=== PATIENT | female | born 1935 | race Caucasian/White ===

== ENCOUNTER 2018-02-28 16:47 | Inpatient (IN) | payer MEDICARE, OTHER ==
--- NOTE | 2018-02-28 17:09 | EDM.PDOC ---
ED HPI GENERAL MEDICAL PROBLEM - General Chief Complaint: Respiratory Problem Stated Complaint: POSSIBLE PNEUMONIA Time Seen by Provider: 02/28/18 16:50 Source of Information: Reports: Patient, EMS, Correction Records History Limitations: Reports: No Limitations - History of Present Illness INITIAL COMMENTS - FREE TEXT/NARRATIVE: Alondra comes into [facility] ED by EMS from [facility] with reported chest congestion, productive cough, and dyspnea over the past 2 weeks. Staff believes she has lost 5-6#s. She was seen in [facility] today who detected a L lower lobe pneumonia and hypoxia in spite of DuoNeb. She has a known hx of pulmonary fibrosis, wears 02 at HS, and has been managed for pneumonia in the past. She is a poor historian. - Related Data Allergies Allergy/AdvReac Type Severity Reaction Status Date / Time No Known Allergies Allergy Verified 06/21/15 18:10 Home Meds: Home Meds Cetirizine [ZyrTEC] 10 mg PO DAILY 06/21/15 [History] Diclofenac Sodium [Voltaren 1% Gel] 1 applic TOP DAILY 06/21/15 [History] Donepezil HCl [Aricept] 23 mg PO DAILY 06/21/15 [History] Omeprazole 20 mg PO DAILY 06/21/15 [History] Oxybutynin [Oxybutynin ER] 10 mg PO DAILY 06/21/15 [History] amLODIPine [Norvasc] 5 mg PO DAILY 06/21/15 [History] Past Medical History HEENT History: Reports: Allergic Rhinitis, Hard of Hearing Cardiovascular History: Reports: High Cholesterol, Hypertension Respiratory History: Reports: COPD, Pneumonia, Recurrent, Pulmonary Fibrosis Gastrointestinal History: Reports: GERD Psychiatric History: Reports: Alzheimers Disease ED ROS GENERAL - Review of Systems Review Of Systems: Unable To Obtain ED EXAM, GENERAL - Physical Exam Exam: See Below Exam Limited By: Other (poor historian) General Appearance: Alert, WD/WN, No Apparent Distress, Thin Eye Exam: Bilateral Eye: EOMI, Normal Inspection, PERRL Ears: Hearing Loss Nose: Normal Inspection Throat/Mouth: Normal Inspection, Normal Lips, No Airway Compromise Head: Normocephalic Neck: Normal Inspection, Supple, Non-Tender Respiratory/Chest: Chest Non-Tender, Decreased Breath Sounds, Rales, Rhonchi, Prolonged Expiration Cardiovascular: Regular Rate, Rhythm, No Murmur GI/Abdominal: Normal Bowel Sounds, Soft, Non-Tender, No Organomegaly, No Distention, No Mass (Female) Exam: Deferred Rectal (Female) Exam: Deferred Back Exam: Normal Inspection Extremities: Normal Inspection Neurological: Alert, No Motor/Sensory Deficits, Disoriented, Slow to Respond, Memory Loss Remote Events, Memory Loss Recent Events Psychiatric: Flat Affect Skin Exam: Warm, Dry, Intact, Normal Color Lymphatic: No Adenopathy Course - Vital Signs Text/Narrative:: I reviewed the chest x ray from the Clinic, and compared with studies from 2016 , and there appears to be infiltrates and progression of pulmonary fibrosis in the L lower and lingular lobes of the lungs. She is afebrile, and is chronically ill. She will be admitted to Observation for initiation of therapies , hydration, and steroids. Hospitalist will follow up in the am. Departure - Departure Time of Disposition: 17:42 Disposition: Refer to Observation Condition: Fair Clinical Impression: Pulmonary fibrosis Community acquired pneumonia Qualifiers: Laterality: left Lung location: lower lobe of lung Qualified Code(s): J18.1 - Lobar pneumonia, unspecified organism - Discharge Information Referrals: Awilda Martini DRONE PILOT [Primary Care Provider] - Forms: ED Department Discharge - Problem List & Annotations (1) Community acquired pneumonia SNOMED Code(s): 613181603 Code(s): J18.9 - PNEUMONIA, UNSPECIFIED ORGANISM Status: Acute Current Visit: Yes Annotation/Comment:: Admit to Observation. Qualifiers: Laterality: left Lung location: lower lobe of lung Qualified Code(s): J18.1 - Lobar pneumonia, unspecified organism (2) Pulmonary fibrosis SNOMED Code(s): 58734757 Code(s): J84.10 - PULMONARY FIBROSIS, UNSPECIFIED Status: Acute Current Visit: Yes Annotation/Comment:: Admit to Observation, continue 02, and start Prednisone - Problem List Review Problem List Initiated/Reviewed/Updated: Yes - Assessment/Plan Plan: Follow up per Hospitalist.
[2018-02-28] MEDS ORDERED: predniSONE 20 MG Tab PO ONE (17:28)
[2018-02-28] MEDS ORDERED: Dextrose 5%-Lactated Ringers 1,000 ML IV SCH ×2 (17:30→21:15)
[2018-02-28] MEDS ORDERED: Azithromycin 500 MG in Sodium Chloride 0.9% 250 ML IV SCH (17:45)
[2018-02-28] MEDS ORDERED: cefTRIAXone 1,000 MG VIAL IVPUSH SCH (17:45)
[2018-02-28] MEDS: Sodium Chloride 0.9% 10 ML Syringe FLUSH PRN ×2 (18:34→20:14)
[2018-02-28] MEDS: Albuterol/Ipratropium 3.0-0.5 MG/3 ML Neb Soln NEB SCH ×2 (18:41→21:26)
[2018-03-01] MEDS: Albuterol/Ipratropium 3.0-0.5 MG/3 ML Neb Soln NEB SCH ×5 (01:26→20:08)
--- NOTE | 2018-03-01 08:17 | PCM.HP ---
H&P History of Present Illness - General Date of Service: 03/01/18 Admit Problem/Dx: Admission Diagnosis/Problem Admission Diagnosis/Problem Community acquired pneumonia Source of Information: Old Records History Limitations: Reports: Other (Dementia) - History of Present Illness Initial Comments - Free Text/Narative: This is an 82-year-old female patient from [facility] with severe dementia was seen essential clinic yesterday. She said 2 week history of dyspnea, cough and was diagnosed with a left lower lobe pneumonia and sent over to the ER for admission. She has a history of pulmonary fibrosis. Patient is alert and talking. Does not answer questions so no further history that I'm able to obtain. Only by old records. denies when asked Pain Score (Numeric/FACES): 0 - Related Data Allergies/Adverse Reactions: Allergies Allergy/AdvReac Type Severity Reaction Status Date / Time codeine Allergy Cannot Verified 02/28/18 19:36 Remember levofloxacin [From Levaquin] Allergy Cannot Verified 02/28/18 19:36 Remember NSAIDS (Non-Steroidal Allergy Cannot Verified 02/28/18 19:36 Anti-Inflamma Remember ofloxacin [From Floxin] Allergy Cannot Verified 02/28/18 19:36 Remember oxycodone Allergy Cannot Verified 02/28/18 19:36 Remember propoxyphene Allergy Cannot Verified 02/28/18 19:36 Remember salicylates Allergy Cannot Verified 02/28/18 19:36 Remember sertraline Allergy Cannot Verified 02/28/18 19:36 Remember Sulfa (Sulfonamide Allergy Cannot Verified 02/28/18 19:36 Antibiotics) Remember Home Medications: Home Meds Diclofenac Sodium [Voltaren 1% Gel] 1 applic TOP QID PRN 06/21/15 [History] Donepezil HCl [Aricept] 23 mg PO DAILY 06/21/15 [History] Omeprazole 14 mg PO DAILY 06/21/15 [History] Budesonide [Pulmicort] 0.5 mg IH DAILY 02/28/18 [History] Cholecalciferol (Vitamin D3) [Vitamin D3] 1,000 unit PO DAILY 02/28/18 [History] Fluticasone Propionate [Flovent Diskus] 50 mcg IH DAILY 02/28/18 [History] Memantine [Namenda] 10 mg PO BID 02/28/18 [History] Montelukast [Singulair] 10 mg PO DAILY 02/28/18 [History] Multivitamin [Multi-Vitamin Daily] 1 each PO DAILY 02/28/18 [History] Past Medical History HEENT History: Reports: Allergic Rhinitis, Hard of Hearing Cardiovascular History: Reports: High Cholesterol, Hypertension Respiratory History: Reports: COPD, Pneumonia, Recurrent, Pulmonary Fibrosis Gastrointestinal History: Reports: GERD 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 (See Below) Other OB/BYN History: Hysterectomy Musculoskeletal History: Reports: Other (See Below) Other Musculoskeletal History: Bunions Neurological History: Reports: Alzheimers Disease Psychiatric History: Reports: Alzheimers Disease - Past Surgical History HEENT Surgical History: Reports: Other (See Below) Other HEENT Surgeries/Procedures: Ear surgery Musculoskeletal Surgical History: Reports: Other (See Below) Other Musculoskeletal Surgeries/Procedures:: left ankle fx, Questionable cervical spine issue- patient confused-poor historian Social & Family History - Family History Family Medical History: Noncontributory - Tobacco Use Smoking Status *Q: Never Smoker Second Hand Smoke Exposure: No - Caffeine Use Caffeine Use: Reports: Coffee Other Caffeine Use: maybe decaffinated - Recreational Drug Use Recreational Drug Use: No H&P Review of Systems - Review of Systems: Review Of Systems: Unable To Obtain Exam - Exam Exam: See Below - Vital Signs Vital Signs: Last Vital Signs Temp 97.9 F 03/01/18 04:00 Pulse 88 03/01/18 04:00 Resp 18 03/01/18 04:00 BP 134/76 03/01/18 04:00 Pulse Ox 96 03/01/18 04:00 Weight: 106 lb 1 oz - Exam General: Alert, Cooperative. No: Oriented HEENT: Hearing Intact, Posterior Pharynx Clear, TMs Clear Neck: Supple, Trachea Midline Lungs: Normal Respiratory Effort, Crackles, Rales Cardiovascular: Regular Rate, Regular Rhythm. No: Tachycardia GI/Abdominal Exam: Normal Bowel Sounds, Non-Tender, No Distention Back Exam: Normal Inspection Extremities: Normal Inspection, No Pedal Edema Skin: Warm, Dry, Intact Neuro Extensive - Mental Status: Alert, Normal Mood/Affect. No: Oriented x3, Normal Cognition, Memory Intact Psychiatric: Alert, Normal Affect, Normal Mood - Patient Data Lab Results Last 24 hrs: Laboratory Results - last 24 hr 02/28/18 Range/Units 18:00 ABG pH 7.48 H (7.35-7.45) ABG pCO2 36 (35-45) mmHg ABG pO2 47 L* (83-108) mmHg ABG HCO3 26 (22-26) mmol/L ABG O2 Saturation 86 L (96-97) % ABG Base Excess TNP Erik Test Passed O2 Delivery Device Nasal cannula Jordan Results Last 24 hrs: Microbiology 02/28/18 18:00 Anaerobic Blood Culture - Final Blood - Venous - Lab Draw - Problem List (1) Alzheimers disease SNOMED Code(s): 82564850 ICD Code: G30.9 - ALZHEIMER'S DISEASE, UNSPECIFIED; F02.80 - DEMENTIA IN OTH DISEASES CLASSD ELSWHR W/O BEHAVRL DISTURB Status: Acute Current Visit: Yes (2) Palliative care status SNOMED Code(s): 173797739 ICD Code: Z51.5 - ENCOUNTER FOR PALLIATIVE CARE Status: Acute Current Visit: Yes (3) Community acquired pneumonia SNOMED Code(s): 894975808 ICD Code: J18.9 - PNEUMONIA, UNSPECIFIED ORGANISM Status: Acute Current Visit: Yes Problem Details: Admit to Observation. Qualifiers: Laterality: left Lung location: lower lobe of lung Qualified Code(s): J18.1 - Lobar pneumonia, unspecified organism (4) Pulmonary fibrosis SNOMED Code(s): 72892258 ICD Code: J84.10 - PULMONARY FIBROSIS, UNSPECIFIED Status: Acute Current Visit: Yes Problem Details: Admit to Observation, continue 02, and start Prednisone Problem List Initiated/Reviewed/Updated: Yes Orders Last 24hrs: Active Orders 24 hr Category Date Time Status Admission Status [Patient Status] [ADT] Routine ADT 02/28/18 18:00 Active Activity as Tolerated [RC] .Routine Care 02/28/18 18:00 Active Oxygen Therapy Adult [Oxygen Therapy] [RC] ASDIRECTED Care 02/28/18 18:15 Active RT Aerosol Therapy [RC] 19,23,03,07,11,15 Care 02/28/18 17:27 Active Regular Diet [DIET] Diet 03/01/18 Breakfast Active CULTURE BLOOD [BC] Urgent Lab 02/28/18 17:55 Received CULTURE BLOOD [BC] Urgent Lab 02/28/18 18:00 Results CULTURE SPUTUM + SMEAR [RM] Stat Lab 02/28/18 17:32 Ordered Albuterol/Ipratropium [DuoNeb 3.0-0.5 MG/3 ML] Med 02/28/18 17:30 Active 3 ml NEB Q4H Azithromycin [Zithromax] 500 mg Med 02/28/18 17:45 Active Sodium Chloride 0.9% [Normal Saline] 250 ml IV Q24H Dextrose 5%-Lactated Ringers 1,000 ml Med 02/28/18 21:15 Active IV ASDIRECTED Sodium Chloride 0.9% [Saline Flush] Med 02/28/18 17:25 Active 10 ml FLUSH ASDIRECTED PRN cefTRIAXone [Rocephin] Med 02/28/18 17:45 Active 1,000 mg IVPUSH Q24H Code Status [Resuscitation Status] Routine Resus Stat 02/28/18 18:59 Ordered EKG 12 Lead [EK] Routine Ther 02/28/18 17:25 Ordered Medication Orders Albuterol/Ipratropium (Duoneb 3.0-0.5 Mg/3 Ml) 3 ml NEB Q4H [facility] Last Admin: 03/01/18 05:23 Dose: 3 ml Admin: 03/01/18 01:26 Dose: 3 ml Admin: 02/28/18 21:26 Dose: 3 ml Admin: 02/28/18 18:41 Dose: 3 ml Ceftriaxone Sodium (Rocephin) 1,000 mg IVPUSH Q24H [facility] Last Admin: 02/28/18 20:13 Dose: 1,000 mg Azithromycin 500 mg/ Sodium (Chloride) 250 mls @ 250 mls/hr IV Q24H [facility] Last Admin: 02/28/18 18:38 Dose: 250 mls/hr Dextrose/Lactated Ringer's (Dextrose 5%-Lactated Ringers) 1,000 mls @ 75 mls/ hr IV ASDIRECTED [facility] Last Admin: 03/01/18 07:30 Dose: 75 mls/hr Sodium Chloride (Saline Flush) 10 ml FLUSH ASDIRECTED PRN PRN Reason: Keep Vein Open Last Admin: 02/28/18 20:14 Dose: 10 ml Admin: 02/28/18 18:34 Dose: 10 ml Assessment/Plan Comment:: 1. She was admitted for observation. Because she continues to be hypoxia will change her to inpatient. 2. Lovenox 30 mg subcutaneous a day for the VTE. 3. Review medication list from home and add medicines that she could continue to take. 4. IV antibiotics. 5. Respiratory consultation and O2 therapy 7. Up with assist. 8. Regular diet.
[2018-03-01] MEDS ORDERED: Sodium Chloride 0.9% 10 ML Syringe FLUSH PRN (08:19)
[2018-03-01] MEDS ORDERED: Diclofenac Sodium 1% Gel 100 GM Tube TOP PRN (08:20)
[2018-03-01] MEDS ORDERED: Levofloxacin 500 MG Tab PO SCH (08:30)
[2018-03-01] MEDS ORDERED: Albuterol/Ipratropium 3.0-0.5 MG/3 ML Neb Soln NEB PRN (08:37)
[2018-03-01] MEDS ORDERED: Budesonide 0.5 MG/2 ML Neb Susp INH SCH (09:00)
[2018-03-01] MEDS: Enoxaparin 30 MG/0.3 ML Syringe SUBCUT SCH (09:14)
[2018-03-01] MEDS: Memantine 10 MG Tab PO SCH ×2 (09:14→20:07)
[2018-03-01] MEDS: Fluticasone Propionate Nasal Spray 16 GM Bottle NASBOTH SCH (09:14)
[2018-03-01] MEDS: predniSONE 20 MG Tab PO SCH (09:15)
[2018-03-01] MEDS: Multivitamin Tab PO SCH (09:15)
[2018-03-01] MEDS: Acetaminophen 650 MG Tab.ER PO SCH ×4 (09:15→20:19)
[2018-03-01] MEDS: Cholecalciferol (Vitamin D3) 1,000 Unit Tab PO SCH (09:15)
[2018-03-01] MEDS: Pantoprazole 40 MG Tab.CR PO SCH (09:15)
[2018-03-01] MEDS: Donepezil 10 MG Tab PO SCH ×2 (09:15→20:08)
[2018-03-01] MEDS ORDERED: Azithromycin 250 MG Tab PO SCH (18:00)
[2018-03-01] MEDS: Sodium Chloride 0.9% 10 ML Syringe FLUSH PRN (18:04)
[2018-03-01] MEDS ORDERED: cefTRIAXone 1,000 MG VIAL IVPUSH SCH (19:00)
[2018-03-01] MEDS ORDERED: Montelukast 10 MG Tab PO SCH (21:00)
[2018-03-02] MEDS ORDERED: Budesonide 0.5 MG/2 ML Neb Susp INH SCH (07:00)
[2018-03-02] MEDS: Pantoprazole 40 MG Tab.CR PO SCH (08:22)
[2018-03-02] MEDS: Albuterol/Ipratropium 3.0-0.5 MG/3 ML Neb Soln NEB SCH ×2 (08:22→12:15)
[2018-03-02] MEDS: Enoxaparin 30 MG/0.3 ML Syringe SUBCUT SCH (08:31)
[2018-03-02] MEDS: Donepezil 10 MG Tab PO SCH (08:34)
[2018-03-02] MEDS: Cholecalciferol (Vitamin D3) 1,000 Unit Tab PO SCH (08:35)
[2018-03-02] MEDS: Acetaminophen 650 MG Tab.ER PO SCH ×2 (08:35→14:08)
[2018-03-02] MEDS: Multivitamin Tab PO SCH (08:35)
[2018-03-02] MEDS: Memantine 10 MG Tab PO SCH (08:35)
[2018-03-02] MEDS: predniSONE 20 MG Tab PO SCH (08:35)
[2018-03-02] MEDS: Fluticasone Propionate Nasal Spray 16 GM Bottle NASBOTH SCH (08:35)
--- NOTE | 2018-03-02 09:52 | PCM.PN ---
- General Info Date of Service: 03/02/18 Admission Dx/Problem (Free Text): Admission Diagnosis/Problem Admission Diagnosis/Problem Community acquired pneumonia Subjective Update: Patient has no complaints and difficult to obtain history because of Alzheimer' s disease. She was started oral medications yesterday. She is eating comfortably and no report of fever hypoxia chest pain or worsening shortness breath. - Review of Systems General: Reports: No Symptoms HEENT: Reports: No Symptoms Pulmonary: Reports: No Symptoms Cardiovascular: Reports: No Symptoms - Patient Data Vitals - Most Recent: Last Vital Signs Temp 98 F 03/01/18 15:50 Pulse 99 03/02/18 08:00 Resp 20 03/02/18 08:00 BP 146/77 H 03/02/18 08:00 Pulse Ox 93 L 03/02/18 08:00 Weight - Most Recent: 48.109 kg Lab Results Last 24 Hours: Laboratory Results - last 24 hr 03/01/18 03/01/18 Range/Units 09:35 09:35 Neutrophils % (Manual) 91 H (46-82) % Lymphocytes % (Manual) 6 L (13-37) % Monocytes % (Manual) 3 L (4-12) % Sodium 139 (135-145) mmol/L Potassium 3.7 (3.5-5.3) mmol/L Chloride 100 (100-110) mmol/L Carbon Dioxide 30 (21-32) mmol/L BUN 13 (7-18) mg/dL Creatinine 1.0 (0.55-1.02) mg/dL Est Cr Clr Drug Dosing 30.62 mL/min Estimated GFR (MDRD) 53 L (>60) BUN/Creatinine Ratio 13.0 (9-20) Glucose 187 H (80-116) mg/dL Calcium 9.5 (8.6-10.2) mg/dL Total Bilirubin 0.2 (0.1-1.3) mg/dL AST 26 H (5-25) IU/L ALT 20 (12-36) U/L Alkaline Phosphatase 122 H (56-112) IU/L Total Protein 8.3 H (6.0-8.0) g/dL Albumin 3.0 L (3.2-4.6) g/dL Globulin 5.3 g/dL Albumin/Globulin Ratio 0.6 Jordan Results Last 24 Hours: Microbiology 02/28/18 18:00 Aerobic Blood Culture - Preliminary Blood - Venous - Lab Draw NO GROWTH AFTER 1 DAY Anaerobic Blood Culture - Final 02/28/18 17:55 Aerobic Blood Culture - Preliminary Blood - Venous NO GROWTH AFTER 1 DAY Anaerobic Blood Culture - Preliminary NO GROWTH AFTER 1 DAY Med Orders - Current: Current Medications Acetaminophen (Tylenol Arthritis Pain) 650 mg PO TID [facility] Last Admin: 03/02/18 08:35 Dose: 650 mg Albuterol/Ipratropium (Duoneb 3.0-0.5 Mg/3 Ml) 3 ml NEB QIDRT [facility] Last Admin: 03/02/18 08:22 Dose: 3 ml Albuterol/Ipratropium (Duoneb 3.0-0.5 Mg/3 Ml) 3 ml NEB Q4H PRN PRN Reason: Wheezing Azithromycin (Zithromax) 250 mg PO DAILY@1800 [facility] Stop: 03/04/18 18:01 Last Admin: 03/01/18 18:02 Dose: 250 mg Budesonide (Pulmicort) 0.5 mg INH DAILY@0700 [facility] Last Admin: 03/02/18 08:30 Dose: 0.5 mg Ceftriaxone Sodium (Rocephin) 1,000 mg IVPUSH Q24H [facility] Last Admin: 03/01/18 18:04 Dose: 1,000 mg Cholecalciferol (Vitamin D3) 1,000 units PO DAILY [facility] Last Admin: 03/02/18 08:35 Dose: 1,000 units Diclofenac Sodium (Voltaren 1% Gel) 0 gm TOP QID PRN PRN Reason: unknown Donepezil HCl (Aricept) 10 mg PO BID [facility] Last Admin: 03/02/18 08:34 Dose: 10 mg Enoxaparin Sodium (Lovenox) 30 mg SUBCUT Q24H [facility] Last Admin: 03/02/18 08:31 Dose: 30 mg Fluticasone Propionate (Flonase) 0 gm NASBOTH DAILY [facility] Last Admin: 03/02/18 08:35 Dose: 1 spray Memantine (Namenda) 10 mg PO BID [facility] Last Admin: 03/02/18 08:35 Dose: 10 mg Montelukast Sodium (Singulair) 10 mg PO BEDTIME [facility] Last Admin: 03/01/18 20:08 Dose: 10 mg Multivitamins/Minerals/Vitamin C (Tab-A-Gumaro) 1 tab PO DAILY [facility] Last Admin: 03/02/18 08:35 Dose: 1 tab Pantoprazole Sodium (Protonix) 40 mg PO ACBREAKFAST [facility] Last Admin: 03/02/18 08:22 Dose: 40 mg Prednisone (Prednisone) 40 mg PO DAILY [facility] Last Admin: 03/02/18 08:35 Dose: 40 mg Sodium Chloride (Saline Flush) 10 ml FLUSH ASDIRECTED PRN PRN Reason: Keep Vein Open Last Admin: 03/01/18 18:04 Dose: 10 ml Sodium Chloride (Saline Flush) 10 ml FLUSH ASDIRECTED PRN PRN Reason: Keep Vein Open Discontinued Medications Albuterol/Ipratropium (Duoneb 3.0-0.5 Mg/3 Ml) 3 ml NEB Q4H [facility] Last Admin: 03/01/18 05:23 Dose: 3 ml Budesonide (Pulmicort) 0.5 mg INH DAILY [facility] Last Admin: 03/01/18 10:39 Dose: 0.5 mg Ceftriaxone Sodium (Rocephin) 1,000 mg IVPUSH Q24H [facility] Last Admin: 02/28/18 20:13 Dose: 1,000 mg Azithromycin 500 mg/ Sodium (Chloride) 250 mls @ 250 mls/hr IV Q24H [facility] Last Admin: 02/28/18 18:38 Dose: 250 mls/hr Dextrose/Lactated Ringer's (Dextrose 5%-Lactated Ringers) 1,000 mls @ 150 mls/ hr IV ASDIRECTED [facility] Last Admin: 02/28/18 18:36 Dose: 150 mls/hr Dextrose/Lactated Ringer's (Dextrose 5%-Lactated Ringers) 1,000 mls @ 75 mls/ hr IV ASDIRECTED [facility] Last Admin: 03/01/18 07:30 Dose: 75 mls/hr Prednisone (Prednisone) 40 mg PO ONETIME ONE Stop: 02/28/18 17:29 Last Admin: 02/28/18 18:47 Dose: 40 mg - Exam Quality Assessment: Supplemental Oxygen General: Alert, Cooperative, No Acute Distress. No: Oriented HEENT: Pupils Equal Neck: Supple Lungs: Normal Respiratory Effort, Decreased Breath Sounds, Crackles Cardiovascular: Regular Rate, Regular Rhythm - Problem List & Annotations (1) Community acquired pneumonia SNOMED Code(s): 324359223 Code(s): J18.9 - PNEUMONIA, UNSPECIFIED ORGANISM Status: Acute Current Visit: Yes Qualifiers: Laterality: left Lung location: lower lobe of lung Qualified Code(s): J18.1 - Lobar pneumonia, unspecified organism Annotation/Comment:: Admit to Observation. (2) Alzheimers disease SNOMED Code(s): 15853321 Code(s): G30.9 - ALZHEIMER'S DISEASE, UNSPECIFIED; F02.80 - DEMENTIA IN OTH DISEASES CLASSD ELSWHR W/O BEHAVRL DISTURB Status: Acute Current Visit: Yes (3) Pulmonary fibrosis SNOMED Code(s): 53937000 Code(s): J84.10 - PULMONARY FIBROSIS, UNSPECIFIED Status: Acute Current Visit: Yes Annotation/Comment:: Admit to Observation, continue 02, and start Prednisone - Problem List Review Problem List Initiated/Reviewed/Updated: Yes - Plan Plan:: I will discharge her back to the [facility], on oral azithromycin, to complete a total of 5 days and prednisone also completed 5 days course.
[2018-03-02] MEDS: Sodium Chloride 0.9% 10 ML Syringe FLUSH PRN ×2 (12:19→12:24)
[2018-03-02] MEDS ORDERED: cefTRIAXone 1,000 MG VIAL IVPUSH ONE (12:30)
--- NOTE | 2018-03-05 09:45 | DISCH ---
DISCHARGE DATE: 03/02/2018 REASON FOR ADMISSION: 1. Community-acquired pneumonia. 2. Pulmonary fibrosis exacerbation. 3. Alzheimer's dementia. BRIEF HISTORY AND HOSPITAL COURSE: This is an 82-year-old female from [facility], admitted on Monday night because of productive cough, dyspnea, and a chest x-ray suggestive of pneumonia. She has a history of Alzheimer's disease and pulmonary fibrosis and uses oxygen supplementation. She was started on Rocephin and azithromycin and prednisone and along with SVNs. She did well and felt ready to go home on Monday, the . DISCHARGE MEDICATIONS: 1. Azithromycin 250 mg 2 more doses. 2. Prednisone 20 mg b.i.d. 2 more days and the rest of the home medications to be continued. FOLLOWUP: Within 1 week with PCP and advised to return to the ED with any worsening symptoms. Please note that I spent more than 35 minutes in the discharge of the patient. /[id number] ARLEN/MARTIN
== END 2018-03-02 13:14 | disposition home health service (06) | DRG 195 ==
LOC: FB.ED 16:47 → FB.MS 17:37 → OBSVTOIN 03-01 08:17
PROVIDERS: ADMIT Family Medicine; ATTEND Family Medicine
DX: J18.1 Lobar pneumonia, unspecified organism (principal); Z51.5 Encounter for palliative care; R09.02 Hypoxemia; G30.9 Alzheimer's disease, unspecified; F02.80 Dementia in other diseases classified elsewhere, unspecified severity, without behavioral disturbance, psychotic disturbance, mood disturbance, and anxiety; Z99.81 Dependence on supplemental oxygen; J84.10 Pulmonary fibrosis, unspecified; R05 Cough; R09.89 Other specified symptoms and signs involving the circulatory and respiratory systems; R06.00 Dyspnea, unspecified; K21.9 Gastro-esophageal reflux disease without esophagitis; Z87.01 Personal history of pneumonia (recurrent); J30.9 Allergic rhinitis, unspecified; H91.90 Unspecified hearing loss, unspecified ear; Z88.1 Allergy status to other antibiotic agents; Z88.5 Allergy status to narcotic agent; Z88.2 Allergy status to sulfonamides; Z88.8 Allergy status to other drugs, medicaments and biological substances
CPT/HCPCS: 36415; 36600; 82803; 87040 ×2; 93005; 94640 ×4; 99284; A9270; J0456; J0696; J7042 ×2; J7050 ×3; J7620 ×4; 80053; 85025; 96361; 96365; 96375; G0378; J1650